=== PATIENT | male | born 1985 | race African-American/Black ===

== ENCOUNTER 2019-07-16 03:05 | Emergency (ER) | payer SELFPAY ==
[~2019-07-16] VITALS: Ht 175.3 cm; Wt 71.0 kg
[2019-07-16] MEDS ORDERED: HYDROcodone/APAP 5/325 TABLET PO ONE (03:30)
[2019-07-16] MEDS ORDERED: HYDROcodone/APAP 5/325 TABLET ONE (03:32)
[2019-07-16 04:07] VITALS: BP 141/82
--- NOTE | 2019-07-16 04:13 | NUR ---
Patient had pain 10/. Medicated patient per mar. Pain now a /.
== END 2019-07-16 04:57 | disposition home or self-care (01) ==
LOC: ED 03:53
DX: G89.11 Acute pain due to trauma (principal); M25.561 Pain in right knee; X50.1XXA Overexertion from prolonged static or awkward postures, initial encounter; Y93.9 Activity, unspecified; Y92.69 Other specified industrial and construction area as the place of occurrence of the external cause; Y99.8 Other external cause status
CPT/HCPCS: 29505; 99283

== ENCOUNTER 2020-03-01 18:09 | Emergency (ER) | payer SELFPAY ==
--- NOTE | 2020-03-01 18:32 | NUR ---
nil x1
--- NOTE | 2020-03-01 18:40 | NUR ---
nil x2
--- NOTE | 2020-03-01 18:57 | NUR ---
NIL X 3
== END 2020-03-01 19:25 | disposition left against medical advice (07) ==
LOC: ED 19:19
DX: R06.02 Shortness of breath (principal); R11.10 Vomiting, unspecified; Z53.21 Procedure and treatment not carried out due to patient leaving prior to being seen by health care provider